=== PATIENT | female | born 1990 | race Caucasian/White ===

== ENCOUNTER 2022-06-26 12:54 | Inpatient (IN) | payer BC, SELFPAY ==
[2022-06-26] VITALS (15 sets, daily range): BP systolic 113–128; BP diastolic 67–76; PULSE 70–97; RESP 16–18; TEMP 36.6–37; O2SAT 99; BMI 31.1
[2022-06-26] MEDS: miSOPROStoL 25 MCG/0.25 TABLET PO ×5 (13:47→22:57)
--- NOTE | 2022-06-26 14:10 | P.OBHP_ITS ---
OB - H&P; HPI Antepartum History of Present Illness Time Seen by Provider: 14:10 Date Seen: 06/26/22 Chief complaint: Maternity Narrative: Rukhsana Vasquez is a 32 year old female who presents after SROM at 0530 this morning. Had gush of clear fluid when she woke and stood up this morning. Baby is moving well. History of Present Dating criteria: based on LMP care: good care Ultrasounds: normal mid trimester US Abnormal ultrasound findings: incomplete views on 20 week ultrasound, repeated at 24 weeks with normal anatomy Medical complications: none Labs Blood type: A (+) positive Rubella: immune GBS status: negative HBsAG: negative Review of Systems Status of ROS: Reports: 10 or more systems reviewed and unremarkable except as noted in History and below Meds Home Medications and Allergies Home Medication Comments: Pepcid, vitamin Allergies Allergy/AdvReac Type Severity Reaction Status Date / Time No Known Drug Allergies Allergy Verified 06/26/22 13:12 OB - H&P: Exam Physical Exam: Vital signs: Pulse BP Pulse Ox 88 128/76 99 06/26/22 13:49 06/26/22 13:49 06/26/22 13:08 Constitutional: Constitutional: no acute distress Routine HEENT Exam: Head: Present atraumatic, normal inspection and normocephalic Routine Neck Exam: Neck: Present full ROM Routine Respiratory Exam: Respiratory: Present CTA bilaterally Routine Cardiovascular Exam: Cardiovascular: RRR, S1 and S2 Detailed Labor and Delivery Exam: Patient Gravid: yes Routine Neurological Exam: Present alert and oriented X3 OB - A/P Antepartum Assessment and Plan (1) SROM (spontaneous rupture of membranes): Status: Acute (2) Term : Status: Acute Plan Patient is a who arrives after SROM at 0530. She went to clinic and had +amnisure. She has not been mart. We discussed options for proceeding with IOL. She is unfavorable, we elect to do oral cytotec to see if we can make her more favorable. First dose in. Questions answered. Will proceed with pitocin if needed. Anticipate . She is considering epidural for pain management. Continue to monitor FHT per protocol. Category 1 tracing at this t sunita. (Baseline 130, positive accels, moderate variability)
[2022-06-26 14:44] LABS: SARS PCR* Negative SARS-CoV-2 (Negative)
[2022-06-26] MEDS: hydrOXYzine pamoate 25 MG CAPSULE 100 MG PO (20:42)
[2022-06-26 22:55] LABS: Basophils Percent Auto 0.2 % (0.0-3.0); Eosinophils Percent Auto 1.1 % (0.0-7.0); Hematocrit 32.5 % (33.0-51.0); Immature Granulocytes Abs Auto 0.03 K/uL (0.00-0.30); Lymphocytes Percent Auto 19.8 % (20-44); Mean Corpuscular HGB Conc 34 gm/dL (32-36); Mean Corpuscular Hemoglobin 28 pg (26-34); Mean Corpuscular Volume 84 fL (80-100); Monocytes Percent Auto 9.5 % (0.0-11.0); Neutrophils Percent Auto 69.1 % (42.0-72.0); Platelet Count* 236 K/uL (140-440); RDW Coefficient of Variation % 12.8 % (11.5-15.5); Red Blood Count 3.89 m/uL (4.00-5.20); Slide Review Reflex No; White Blood Count* 11.34 K/uL (4.50-11.00)
[2022-06-27] VITALS (96 sets, daily range): BP systolic 89–144; BP diastolic 51–77; PULSE 70–103; RESP 16–18; TEMP 36.6–37.5; O2SAT 89–100
[2022-06-27] MEDS: miSOPROStoL 25 MCG/0.25 TABLET PO (01:17)
[2022-06-27] MEDS: ONDANSETRON 2 MG/ML inj 4 MG IV ×2 (04:06→11:42)
[2022-06-27] MEDS: LACTATED RINGERS 1000 ML 1,000 ML 125 ML IV (04:47)
[2022-06-27] MEDS: OXYTOCIN 30 unit/500 ML in NS 30 UNIT/500 ML BAG IVPB (05:15)
[2022-06-27] MEDS: ROPIVACAINE 0.2% 100 ml 100 ML 12 MG EPIDURAL (05:35)
--- NOTE | 2022-06-27 05:45 | P.ANBPRC_ITS ---
PFSH PFS Social History Smoking Status: Never smoker Meds Home Medications and Allergies Allergies Allergy/AdvReac Type Severity Reaction Status Date / Time No Known Drug Allergies Allergy Verified 06/26/22 13:12 Results Labs Labs: Laboratory Results - last 24 hr 06/26/22 06/26/22 06/26/22 13:26 22:45 22:45 WBC 11.34 H RBC 3.89 L Hgb 11.0 L Hct 32.5 L MCV 84 MCH 28 MCHC 34 RDW Coeff of Ora 12.8 Plt Count 236 Neut % (Auto) 69.1 Lymph % (Auto) 19.8 L [place] % (Auto) 9.5 Eos % (Auto) 1.1 Baso % (Auto) 0.2 Neut # (Auto) 7.80 H Lymph # (Auto) 2.20 [place] # (Auto) 1.10 H Eos # (Auto) 0.10 Baso # (Auto) 0.00 Abs Immat Gran (auto) 0.03 SARS-CoV-2 (PCR) Negative SARS-CoV-2 Blood Type A Positive Antibody Screen NEGATIVE Vital Signs Vital Signs: Last Vital Signs Temp 98.4 F 06/27/22 04:34 Pulse 77 06/27/22 05:44 Resp 18 06/27/22 02:12 BP 121/64 06/27/22 05:44 Pulse Ox 99 06/27/22 05:43 Weight: 92.986 kg Height: 172.72 cm Anesthesia Procedures Epidural Insertion Patient Location: OB Start Time: 04:45 Stop Time: 05:45 Start Date: 06/27/22 Stop Date: 06/27/22 Reason for Block: procedure for pain Patient Position: sitting Performed By: Kwaku Calzada Preanesthetic Checklist: IV checked, risks and benefits discussed, surgical consent, monitors and equipment checked, pre-op evaluation, timeout performed and anesthesia consent Prep: chlorhexidine gluconate Monitoring: blood pressure monitoring, continuous pulse oximetry and heart rate Approach: midline Vertebral Space: lumbar (1-5) Epidural Technique: DIVINE saline Needle Type: Tuohy needle Injection Technique: continuous catheter Needle gauge: 17 Needle Length (cm): 10 cm Needle Insertion Depth (cm): 7 Catheter Gauge: 19 Catheter Type: multi-orifice Catheter at skin depth (cm): 12 Test Dose Result: negative and lidocaine 1.5% with epinephrine 1 to 200,000
[2022-06-27] MEDS: LACTATED RINGERS 1000 ML 1,000 ML 999 ML IV (05:47)
[2022-06-27] MEDS: LIDOCAINE 1% MDV 20 ML INJECTION (13:08)
--- NOTE | 2022-06-27 13:44 | PM.OBPRCVD ---
Procedure Delivery date: 06/27/22 Procedure Done: Global Intrapartal Events: Labor Induction and ROM >18 Hours Induction method: per misoprostol protocol Delivery augmentation: pitocin Delivery monitor: external FHT Route of delivery: Laceration description: Perineal - 2nd Degree Delivery repair: Vicryl Estimated blood loss (mL): 60 Anesthesia type: Epidural Disposition: no change Narrative: The patient is a 32 y.o. female who was admitted for Reason for admission:SROM (0530 on 06/26). Had unfavorable cervix so started cytotec per oral protocol. Received 6 doses and then pitocin was started. She received epidural for anesthesia. She became complete at: 1130. The baby delivered Position:OA position over intact perineum. Cord was clamped x 2 after 1 minute of delayed cord clamping and cut by FOB who was in attendance. Placenta was delivered intact. The baby was delivered onto maternal abdomen and stayed with mother. No gross defects were observed. 2nd degree laceration repaired in the usual fashion. Sponge and sharp count is correct. Uterotonics after delivery of placenta: Pitocin Infant Infant Gender: Male presentation: vertex Placental Delivery Description: Spontaneous Cord Description: 3 Vessels cord description comment: had excessory membrane vs Band associated with cord OB Vag Delivery Procedures Additional Procedures ECV: No Cook Catheter Insertion: No NST: Yes D&C: No Laceration Repair: Yes Tubal Ligation : No Other: No
[2022-06-27] MEDS: IBUPROFEN 600 MG TABLET PO ×2 (14:41→20:42)
[2022-06-27] MEDS: ACETAMINOPHEN 500 MG TABLET 1000 MG PO (18:45)
[2022-06-28] VITALS (8 sets, daily range): BP systolic 111–129; BP diastolic 74–83; PULSE 72–84; RESP 16; TEMP 36.6–36.7; O2SAT 97–98
[2022-06-28] MEDS: IBUPROFEN 600 MG TABLET PO ×3 (02:34→14:59)
[2022-06-28 06:30] LABS: Hemoglobin* 9.1 gm/dL (12.0-16.0)
[2022-06-28] MEDS: DOCUSATE SODIUM 100 MG CAPSULE PO (08:40)
--- NOTE | 2022-06-28 14:47 | PM.OBDSVD1 ---
DS: Providers Provider Time Seen by Provider: 06:30 Date Seen: 06/28/22 Date of admission: 06/26/22 12:54 Primary care physician: Dalia Meadows MD Admitting Clinician: Dalia Meadows MD Attending Physician on discharge: Dalia Meadows MD Date of Discharge: 06/28/22 DS: Diagnosis Discharge Diagnosis (1) (normal spontaneous vaginal delivery): Status: Acute Exam Const: Vital Signs, click to edit/add: Vital Signs - 24 hr 06/27/22 15:00 06/27/22 16:26 06/27/22 15:00 Temperature 97.9 F 98.0 F Pulse Rate 103 H Pulse Rate [Blood Pressure Cuff] 103 H Pulse Rate [Pulse Oximeter] 99 Respiratory Rate 16 16 Blood Pressure 116/72 Blood Pressure [Le ft Arm] 116/72 Blood Pressure [Ri ght Arm] 109/71 Pulse Oximetry 98 Oxygen Delivery Me thod Room Air 06/27/22 18:45 06/27/22 20:25 06/28/22 02:10 Temperature 98.0 F 98 F 97.9 F Pulse Rate Pulse Rate [Blood Pressure Cuff] Pulse Rate [Pulse Oximeter] 85 72 Respiratory Rate 16 16 Blood Pressure Blood Pressure [Le ft Arm] Blood Pressure [Ri ght Arm] 113/73 121/80 Pulse Oximetry 98 97 Oxygen Delivery Me thod Room Air Room Air 06/28/22 05:15 06/28/22 05:25 06/28/22 08:40 Temperature 97.8 F 98.1 F Pulse Rate Pulse Rate [Blood Pressure Cuff] Pulse Rate [Pulse Oximeter] 72 Respiratory Rate 16 Blood Pressure Blood Pressure [Le ft Arm] Blood Pressure [Ri ght Arm] 129/83 121/77 Pulse Oximetry 97 Oxygen Delivery Me thod Room Air 06/28/22 08:43 06/28/22 12:45 06/28/22 09:40 Temperature 97.8 F 97.8 F Pulse Rate Pulse Rate [Blood Pressure Cuff] Pulse Rate [Pulse Oximeter] 84 Respiratory Rate 16 Blood Pressure Blood Pressure [Le ft Arm] 111/74 Blood Pressure [Ri ght Arm] Pulse Oximetry 97 Oxygen Delivery Me thod Room Air Room Air Documenting provider has reviewed patient's vital signs: yes Common normals: no apparent distress, average body habitus and oriented x3 General appearance: cooperative and comfortable Orientation/consciousness: Yes awake, Yes oriented to person, Yes oriented to place and Yes oriented to time HENMT: Common normals: normocephalic, head/scalp atraumatic and external nose normal Head and scalp: normocephalic and atraumatic Nose: external nose normal Chest: Chest: symmetrical chest wall rise Resp: Common normals: normal respiratory effort Effort & inspection: able to speak in complete sentences GI: Common normals: soft to palpation and non-tender Palpation: soft Other: fundas at 2 below umbilicus : OB/external & speculum: Yes deferred Extremity: Common normals: normal to inspection, full ROM, no clubbing, cyanosis or edema and no pedal edema Neuro: Common normals: oriented x3 Sensorium/orientation: awake, oriented to person, oriented to place and oriented to time Skin: Common normals: no rashes or lesions noted General skin exam: no rashes or lesions noted OB - DS: Summary Hospital Course Hospital Course: The patient is a 32 year old G 1 P 1 at 38 weeks gestation that was admitted to the Center on 06/26/22 for SROM. Had IOL with cytotec and pitocin. She had an uncomplicated vaginal delivery. She delivered a viable male infant. She is breast feeding. the patient has done well. Peripartum Data delivery method: Vaginal Laceration description: Perineal - 2nd Degree complications: none Infant Gender: Male Infant Discharge Plan: Home Status at Discharge Functional status at discharge: independent ambulation Overall status at discharge: patient is back to baseline Time Spent with Patient Time attestation: Total time spent providing and/or coordinating discharge services: Time spent: Less than 30 minutes Discharge Plan Discharge Disposition: Home, Self-Care Date of Admission: 06/26/22 12:54 Attending Provider on Discharge: Dalia Meadows Primary Care Provider: Dalia Meadows Condition: Stable Anticipated Discharge Date/Time: 06/28/22 14:37 Discharge Orders: Discharge Order (Routine); Ordered 06/28/22 Ordered By: Dalia Meadows Patient Education: Vaginal Delivery (DC) Activity Level: No Restrictions Activity Detail: pelvic rest x 6 weeks Discharge Diet: Regular Diet Detail: high iron diet. Follow Up Appointments: Dalia Meadows MD [Primary Care Provider] - Forms: MyHealth Info Instructions Discharge Comments: May take tylenol and ibuprofen for pain control as needed. May want to use miralax for stool softener as needed. Hemoglobin was 9.1, please consider iron supplementation daily in addition to vitamin.
== END 2022-06-28 16:05 | disposition home or self-care (01) | DRG 560 ==
PROVIDERS: Admitting Provider Family Medicine; PCP Family Medicine; Visit Provider Family Medicine
DX: O42.02 Full-term premature rupture of membranes, onset of labor within 24 hours of rupture (principal); O70.1 Second degree perineal laceration during delivery; Z3A.40 40 weeks gestation of pregnancy; Z37.0 Single live birth
CPT/HCPCS: 01967; 36415; 59200; 85018; 85025; 86850; 86900; 86901; 87635; A9270; J2405; J2795; J7120; S0020

== ENCOUNTER 2024-12-14 12:04 | Outpatient (CLI) | payer BC, SELFPAY ==
[2024-12-14 12:40] LABS: Appearance Urine Clear (Clear); Bilirubin Urine Negative (Negative); Blood Urine Negative (Negative); Color Urine Yellow (Yellow); Glucose Urine Negative (Negative); Ketones Urine Trace (Negative); Leukocyte Esterase Urine Negative (Negative); Nitrite Urine Negative (Negative); Protein Urine Negative (Negative); Specific Gravity Urine 1.015 (1.000-1.030); Urobilinogen Urine 0.2 (0.2-1.0); pH Urine 7.5 (5.0-8.5)
[2024-12-14 12:52] VITALS: BP 113/79; PULSE 85
[2024-12-14 13:16] LABS: Amnisure Rom* Negative
[2024-12-14 13:25] LABS: Clue Cells No Clue Cells Seen (None Seen); Trichomonas No Trichomonas Seen (None Seen); Yeast No Yeast Seen (None Seen)
--- NOTE | 2024-12-14 14:24 | PM.OBLDTN ---
OB - Triage/Final Diagnosis Visit Information Time Seen by Provider: 14:24 Date Seen: 12/14/24 Date of evaluation: 12/14/24 Narrative: The patient is a 34 year old 2 para 1 at 27 weeks gestation who presents with abdominal cramping. Patient was flying home last evening from [place] and on the plane had intense cramping in lower abdomen. She states this persisted for much for the flight but then resolved. Overnight she had recurrence of this that woke her from sleep. Today, she has been having menstrual like cramping. Had thin watery discharge yesterday, none today. Normal movement. Otherwise feels well. Evaluation Laboratory results: Laboratory Tests 12/14/24 12/14/24 Range/Units Unknown 12:27 Urine Color Yellow (Yellow) Urine Appearance Clear (Clear) Urine pH 7.5 (5.0-8.5) Ur Specific [place] 1.015 (1.000-1.030) Urine Protein Negative (Negative) Urine Glucose (UA) Negative (Negative) Urine Ketones Trace A (Negative) Urine Blood Negative (Negative) Urine Nitrite Negative (Negative) Urine Bilirubin Negative (Negative) Urine Urobilinogen 0.2 (0.2-1.0) Ur Leukocyte Esterase Negative (Negative) Membrane Rupture Negative Vaginal Trichomonas No Trichomonas Seen (None Seen) Vaginal Yeast No Yeast Seen (None Seen) Vaginal Clue Cells No Clue Cells Seen (None Seen) Vital signs: Vital Signs - 24 hr 12/14/24 12:52 Pulse Rate 85 Blood Pressure 113/79 Fetus (Single) Heart Rate Baseline: 140 [place] Variability: Moderate (6-25) Monitor Accelerations: Present Monitor Decelerations: None Final Diagnosis (1) uterine contractions: Status: Acute Problem details: Patient presents with cramping, irritability of uterus with occasional contraction. UA unremarkable, wet prep normal. Amnisure negative. Cervical length is 4 cm. Given this, unlikely to progress to labor. Recommend ongoing hydration, monitoring of symptoms, returning with any changes. She will call PRN, otherwise will follow up with me next week in clinic. (2) Abdominal cramping affecting : Status: Acute Problem details: ?GI source. Work up above reassuring. Will continue to monitor, discussed supportive cares. Total Time Spent Total Time Spent: 45
--- NOTE | 2024-12-14 16:48 | PC.OBNST ---
NST Note NST Note Start: 12/14/24 12:34 Freq: ONCE Status: Active Protocol: Document 12/14/24 16:47 ABP (Rec: 12/14/24 16:47 ABP [id number]) NST Note 2 Para (# of births) 1 EDC 03/12/25 Gestational Age In Weeks & Days 27 Weeks & 3 Days Patient Presented with Complaint(s) of Contractions/cramping,Leaking fluid Reactive Yes Appropriate for Gestational Age Yes RN Estephanie Liriano, RN Date 12/14/24 Reactive Yes Appropriate for Gestational Age Yes RAIN Martinez RNC Date 12/14/24 OB NST charge Yes Complete NST Note via Write Note Yes The provider's electronic signature indicates the NST is reactive/appropriate for gestational age. *Note to provider: If an addendum is required, open the patient's chart and click on the note under the Nurse/Allied Health tab.
== END 2024-12-14 14:25 | disposition home or self-care (01) ==
LOC: OB OUT 12:05 → OB 12:05
PROVIDERS: PCP Family Medicine; Visit Provider Family Medicine
DX: O47.02 False labor before 37 completed weeks of gestation, second trimester (principal); Z3A.27 27 weeks gestation of pregnancy
CPT/HCPCS: 59025; 76815; 76817; 81003; 84112; 87086; 87186; 87210; 99199; G0463

== ENCOUNTER 2025-02-01 08:34 | Outpatient (CLI) | payer BC, SELFPAY ==
[2025-02-01 08:51] VITALS: PULSE 105; O2SAT 98
[2025-02-01 08:53] VITALS: BP 121/59; PULSE 104; RESP 16; TEMP 36.9
[2025-02-01 09:17] LABS: Appearance Urine Cloudy (Clear); Bilirubin Urine Negative (Negative); Blood Urine Negative (Negative); Color Urine Yellow (Yellow); Glucose Urine Negative (Negative); Ketones Urine Negative (Negative); Leukocyte Esterase Urine Negative (Negative); Nitrite Urine Negative (Negative); Protein Urine 1+ (Negative); Urobilinogen Urine 0.2 (0.2-1.0); pH Urine 7.5 (5.0-8.5)
[2025-02-01 09:21] LABS: Clue Cells No Clue Cells Seen (None Seen); Trichomonas No Trichomonas Seen (None Seen); Yeast No Yeast Seen (None Seen)
[2025-02-01 09:26] LABS: Amnisure Rom* Negative
[2025-02-01 09:29] LABS: Bacteria Urine Many; RBC Urine 0-2 (0-2); Squamous Epithelial Cell Urine Moderate (None-Few)
--- NOTE | 2025-02-01 09:57 | PC.OBNST ---
NST Note NST Note Start: 02/01/25 08:45 Freq: ONCE Status: Active Protocol: Document 02/01/25 09:56 ABP (Rec: 02/01/25 09:57 ABP [id number]) NST Note 2 Para (# of births) 1 EDC 03/12/25 Gestational Age In Weeks & Days 34 Weeks & 3 Days Patient Presented with Complaint(s) of Leaking fluid Reactive Yes Appropriate for Gestational Age Yes RAIN Liriano RNC Date 02/01/25 Reactive Yes Appropriate for Gestational Age Yes RAIN Hou RN Date 02/01/25 OB NST charge Yes Complete NST Note via Write Note Yes The provider's electronic signature indicates the NST is reactive/appropriate for gestational age. *Note to provider: If an addendum is required, open the patient's chart and click on the note under the Nurse/Allied Health tab.
[2025-02-02 08:49] LABS: Strep B DNA Probe Negative (Negative)
[2025-02-02 10:16] LABS: Strep B Susceptibility Needed? No
--- NOTE | 2025-02-04 17:57 | PC.OBNST ---
NST Note NST Note Start: 02/01/25 08:45 Freq: ONCE Status: Discharge Protocol: Document 02/01/25 09:56 ABP (Rec: 02/01/25 09:57 ABP [id number]) NST Note 2 Para (# of births) 1 EDC 03/12/25 Gestational Age In Weeks & Days 34 Weeks & 3 Days Patient Presented with Complaint(s) of Leaking fluid Reactive Yes Appropriate for Gestational Age Yes RAIN Liriano RNC Date 02/01/25 Reactive Yes Appropriate for Gestational Age Yes RAIN Hou RN Date 02/01/25 OB NST charge Yes Complete NST Note via Write Note Yes The provider's electronic signature indicates the NST is reactive/appropriate for gestational age. *Note to provider: If an addendum is required, open the patient's chart and click on the note under the Nurse/Allied Health tab.
--- NOTE | 2025-03-03 18:33 | W.PM.NSTNOTE ---
NST Note NST Note NST Note: NST Note NST Note Start: 02/01/25 08:45 Freq: ONCE Status: Discharge Protocol: Document 02/01/25 09:56 ABP (Rec: 02/01/25 09:57 ABP [id number]) NST Note 2 Para (# of births) 1 EDC 03/12/25 Gestational Age In 34 Weeks & 3 Days Weeks & Days Patient Presented Leaking fluid with Complaint(s) of Reactive Yes Appropriate for Yes Gestational Age RAIN Liriano RNC Date 02/01/25 Reactive Yes Appropriate for Yes Gestational Age RAIN Hou, RAIN Date 02/01/25 OB NST charge Yes Complete NST Note Yes via Write Note Addendum: FHT: moderate variability, baseline 145 bpm, accels present, no decels.
== END 2025-02-01 09:45 | disposition home or self-care (01) ==
LOC: OB OUT 08:35 → OB 08:36
PROVIDERS: PCP Family Medicine; Visit Provider Student in an Organized Health Care Education/Training Program
DX: O47.03 False labor before 37 completed weeks of gestation, third trimester (principal); Z3A.34 34 weeks gestation of pregnancy
CPT/HCPCS: 59025; 81001; 84112; 87081; 87086; 87210; 87653; G0463

== ENCOUNTER 2025-03-10 08:07 | Inpatient (IN) | payer BC, SELFPAY ==
[2025-03-10] VITALS (29 sets, daily range): BP systolic 102–139; BP diastolic 56–80; PULSE 70–98; RESP 16; TEMP 36.5–36.7; O2SAT 97–100; BMI 31.4
[2025-03-10 09:02] LABS: Hematocrit 32.7 % (33.0-51.0); Hemoglobin* 10.6 gm/dL (12.0-16.0); Lymphocytes Percent Auto 14.5 % (20-44); Mean Corpuscular HGB Conc 32 gm/dL (32-36); Mean Corpuscular Hemoglobin 27 pg (26-34); Mean Corpuscular Volume 83 fL (80-100); Monocytes Percent Auto 9.3 % (0.0-11.0); Neutrophils Percent Auto 73.2 % (42.0-72.0); Platelet Count* 199 K/uL (140-440); Red Blood Count 3.92 m/uL (4.00-5.20); White Blood Count* 9.33 K/uL (4.50-11.00)
[2025-03-10 09:03] LABS: Basophils Absolute Auto 0.02 K/uL (0.00-0.30); Basophils Percent Auto 0.2 % (0.0-3.0); Eosinophils Absolute Auto 0.23 K/uL (0.00-0.50); Eosinophils Percent Auto 2.5 % (0.0-7.0); Immature Granulocytes Abs Auto 0.03 K/uL (0.00-0.30); Immature Granulocytes Pct Auto 0.3 %; Slide Review Reflex No
[2025-03-10] MEDS: LACTATED RINGERS 1000 ML 1,000 ML 125 ML IV (09:11)
[2025-03-10] MEDS: OXYTOCIN 30 unit/500 ML in NS 30 UNIT/500 ML BAG IVPB (09:11)
--- NOTE | 2025-03-10 12:21 | PM.OBHPLI ---
OB - H&P: HPI Labor/Induction History of Present Illness Time Seen by Provider: 12:21 Date Seen: 03/10/25 Chief Complaint: The patient is a 34 year old 2 para 1 at 39.5 weeks gestation by LMP and consistent with 8 week ultrasound, who presents for elective IOL. Chief complaint: Elective IOL : 2 Para: 1 Narrative: Rukhsana Vasquez is a 34 year old female at 39.5 week gestation who presents for elective IOL for prolonged prodromal labor. Patient has been mart painfully off and on since 36 weeks. Patient's has been complicated by PUPPS rash and anemia (s/p feraheme x 2). History of Present Dating criteria: based on LMP (consistent with 8 week ultrasound) care: good care Ultrasounds: normal 1st trimester US and normal mid trimester US (level 2 ultrasound done for history of amniotic band on first baby) Medical complications: none Labs Blood type: A (+) positive Rubella: immune RPR/VDLR: nonreactive GBS status: negative HBsAG: negative Review of Systems Status of ROS: Reports: 10 or more systems reviewed and unremarkable except as noted in History and below Meds Home Medications and Allergies Home Medications ?Medication ?Instructions ?Recorded ?Confirmed ?Type vit no.95-ferrous 1 tab PO DAILY 12/14/24 03/10/25 History fumarate 28 mg-folic acid 800 mcg tablet () hydroxyzine HCl 25 mg tablet 25 mg PO HS itching 03/10/25 03/10/25 History triamcinolone acetonide 0.1 % 1 applic topical BID pups rash 03/10/25 03/10/25 History lotion Allergies Allergy/AdvReac Type Severity Reaction Status Date / Time No Known Drug Allergies Allergy Verified 03/10/25 08:25 OB - H&P: Exam Physical Exam: Vital signs: Temp Pulse BP Pulse Ox 98.1 F 83 132/73 99 03/10/25 09:30 03/10/25 12:19 03/10/25 12:19 03/10/25 09:31 Constitutional: Constitutional: no acute distress Routine HEENT Exam: Head: Present atraumatic and normal inspection Routine Neck Exam: Neck: Present full ROM Routine Respiratory Exam: Respiratory: Present CTA bilaterally Routine Cardiovascular Exam: Cardiovascular: RRR, S1, S2 and murmur (1/6 systolic murmur) Detailed Labor and Delivery Exam: Patient Gravid: yes Dilation (cm): 3 Effacement (%): 80 Cervix position: mid Consistency: medium Contraction frequency (min): 4 Tachysystole: No Contraction intensity: Mild Fetus (Single): Station: -2 Amniotic Membrane Status: AROM (arom now of scant amount of clear fluid) Amniotic Membrane Fluid Description: Clear Heart Rate Baseline: 135 Monitor Accelerations: Present Monitor Decelerations: None [employer] Variability: Moderate (6-25) Routine Extremities Exam: Extremities: Absent calf tenderness Routine Skin Exam: Present intact Routine Neurological Exam: Present alert and oriented X3 Routine Psychiatric Exam: Present normal affect OB - Results Labs Labs: Short CBC 03/10/25 Range/Units 08:51 WBC 9.33 (4.50-11.00) K/uL Hgb 10.6 L (12.0-16.0) gm/dL Hct 32.7 L (33.0-51.0) % Plt Count 199 (140-440) K/uL OB - Problem Based A/P Additional Plan (1) Gestational proteinuria: Problem details: had elevated prot/cr ratio weeks ago in clinic, no elevated blood pressures, no symptoms of preeclampsia. Status: Acute (2) Term : Status: Acute (3) Anemia affecting : Problem details: anemia in , s/p 2 feraheme infusions in clinic. Admission hemoglobin 10.6 Status: Acute Plan - Pitocin started this morning - AROM now, scant fluid, feeling more painful afterward. Delivery/Labor/Induction Plan Plan: induction Induction method: per pitocin protocol
[2025-03-10] MEDS: CALCIUM CARBONATE 500 MG CHEW PO (12:23)
[2025-03-10] MEDS: ONDANSETRON 2 MG/ML inj 4 MG IV (13:57)
[2025-03-10] MEDS: ROPIVACAINE 0.2% 100 ml 100 ML 12 MG EPIDURAL (14:07)
[2025-03-10] MEDS: LIDOCAINE 2% (PF) 5 ML VIAL EPIDURAL (14:08)
[2025-03-10] MEDS: fentaNYL 250 MCG/5 ML inj 100 MCG EPIDURAL (14:25)
[2025-03-10] MEDS: LACTATED RINGERS 1000 ML 1,000 ML 925 ML IV (14:28)
--- NOTE | 2025-03-10 14:38 | PM.ANBPRC ---
[facility] Medical History (Updated 03/10/25 @ 12:33 by Dalia Meadows MD) Term ?Z34.90 - Encounter for supervision of normal , unspecified, unspecified trimester (ICD-10) Social History What is your current living situation?: I presently have a place to live Problems where you live: no known problems In the past 12 months, utilities in danger of being shut off: no In past 12 months, lack of transportation kept you from medical appts, meetings, work, or getting things needed for daily living: no In the past 12 mos, have been you worried that your food would run out before you had money to buy more?: never true In the past 12 mos, the food you bought just didn't last and you didn't have money to buy more?: never true Smoking Status: Never smoker How often does anyone, including family, friends and others, physically hurt you: never How often does anyone, including family, friends and others, insult or talk down to you: never How often does anyone, including family, friends and others, threaten you with harm: never How often does anyone, including family, friends and others, scream or curse at you: never Meds Home Medications and Allergies Home Medications ?Medication ?Instructions ?Recorded ?Confirmed ?Type vit no.95-ferrous 1 tab PO DAILY 12/14/24 03/10/25 History fumarate 28 mg-folic acid 800 mcg tablet () hydroxyzine HCl 25 mg tablet 25 mg PO HS itching 03/10/25 03/10/25 History triamcinolone acetonide 0.1 % 1 applic topical BID pups rash 03/10/25 03/10/25 History lotion Allergies Allergy/AdvReac Type Severity Reaction Status Date / Time No Known Drug Allergies Allergy Verified 03/10/25 08:25 Results Labs Labs: Laboratory Results - last 24 hr 03/10/25 08:51 WBC 9.33 RBC 3.92 L Hgb 10.6 L Hct 32.7 L MCV 83 MCH 27 MCHC 32 RDW Coeff of Ora 17.0 H Plt Count 199 Neut % (Auto) 73.2 H Lymph % (Auto) 14.5 L [place] % (Auto) 9.3 Eos % (Auto) 2.5 Baso % (Auto) 0.2 Neut # (Auto) 6.80 Lymph # (Auto) 1.40 [place] # (Auto) 0.90 Eos # (Auto) 0.23 Baso # (Auto) 0.02 Abs Immat Gran (auto) 0.03 Imm/Tot Granulo (auto) 0.3 Blood Type A Positive Antibody Screen NEGATIVE Vital Signs Vital Signs: Last Vital Signs Temp 97.7 F 03/10/25 12:19 Pulse 98 03/10/25 14:36 BP 127/63 03/10/25 14:36 Pulse Ox 100 03/10/25 14:21 Weight: 93.894 kg Height: 172.72 cm Anesthesia Procedures Epidural Insertion Patient Location: OB Start Time: 14:00 Stop Time: 15:00 Start Date: 03/10/25 Stop Date: 03/10/25 Reason for Block: primary anesthetic Patient Position: sitting Performed By: Gonzalo Joseph Preanesthetic Checklist: IV checked, risks and benefits discussed, surgical consent, monitors and equipment checked, pre-op evaluation, timeout performed and anesthesia consent Prep: chlorhexidine gluconate Monitoring: blood pressure monitoring, cardiac cath rn, continuous pulse oximetry and heart rate Approach: midline Vertebral Space: lumbar (1-5) Needle Type: Tuohy needle Injection Technique: continuous catheter Needle gauge: 17 Needle Length (cm): 10 cm Needle Insertion Depth (cm): 6 Catheter Gauge: 19 Catheter Type: multi-orifice Catheter at skin depth (cm): 12 Test Dose Result: negative and lidocaine 1.5% with epinephrine 1 to 200,000 Events: other
--- NOTE | 2025-03-10 15:46 | PM.OBPNL ---
Subjective Time Seen by Provider: 15:46 Date Seen: 03/10/25 Narrative: Patient is comfortable with epidural. Objective Exam: Resting comfortably in bed. Vital Signs: Last Vital Signs Temp 98 F 03/10/25 14:54 Pulse 78 03/10/25 15:39 BP 112/56 L 03/10/25 15:39 Pulse Ox 100 03/10/25 14:21 Pelvic Exam Dilation (cm): 5 Effacement (%): 90 Station: -1 Contractions Monitor mode: External Contraction Frequency: 2-3 min Contraction pattern: Regular Contraction intensity: Strong/Firm Pitocin Rate (mU/min): 4 Assessment Assessment: induction ongoing Station: -1 Amniotic Membrane Status: AROM (clear fluid) Status: Category l Heart Rate Baseline: 135 [place] Variability: Moderate (6-25) Monitor Accelerations: Present Monitor Decelerations: None Plan Plan: - increase pitocin - anticipate - continue epidural for analgesia.
--- NOTE | 2025-03-10 17:22 | W.PM.OBVAGDE ---
OB Procedure Vag Delivery Mother Details Mother Details: The patient is a 34 year-old, 2, Para 1, admitted on 03/10/25 at 39.5 Days gestation. : 2 Para: 1 Weeks Gestation: 39.5 Admission Date: 03/10/25 Additional Details Amniotic Membrane Status: AROM (arom now of scant amount of clear fluid) Amniotic Membrane Rupture Date: 03/10/25 Amniotic Membrane Rupture Time: 12:11 Amniotic Membrane Fluid Description: Clear Analgesia/Anesthesia Type: Epidural Waterbirth: No Pitcoin: Yes Intrapartal Events: Labor Induction and Precipitous Labor <3 Hrs Induction Method: per pitocin protocol and AROM Labor Onset: 15:45 Complete: 16:29 Pushin:30 Heart: heart tones during second stage showed deep late decels to 80s, but recovered between contractions with position changes. Was able to push very effectively. Delivery Details Delivery Date: 03/10/25 Delivery Time: 16:35 Route of delivery: Infant Gender: Female Infant Viability: Alive; Heart Rate Present Position at Delivery: OA Delivery Details: Patient was admitted for IOL (elective) at 39.5 weeks gestation. She was started on pitocin per protocol, and AROM was performed at 1211. Patient received epidural for analgesia with good relief. Patient progressed very well. Was 5 cm at 1545 and showed early decels and was found to be complete at 1629. Due to recurrent decels, pushing was started immediately at 1630. Patient pushed very effectively over 3 contractions spontaneously delivering a viable female over intact perineum. Nuchal cord was reduced x 1. was placed on maternal abdomen.? Cord was clamped and cut after a 30-60 second delay by FOB who was in attendence. Nose and mouth were bulb suctioned.? Infant weight pending 1 Minute Interval Total Score: 8 5 Minute Interval Total Score: 8 Additional Details Shoulder Dystocia: No Placenta Delivery Time: 16:45 Placental Delivery Description: Spontaneous Delivery repair: Vicryl Procedure Done: Global Blood Loss: 75 Laceration: Perineal - 2nd Degree Blood Loss Measurement Type: QBL Bakri Used: No Sponge/Need Count Correct: Yes Cord Vessel Description: 3 Vessels, Nuchal Cord and Reduced Event Summary Status: Mother and were stable after delivery. Disposition: no change
[2025-03-10] MEDS: IBUPROFEN 600 MG TABLET PO (19:04)
[2025-03-10] MEDS: ACETAMINOPHEN 500 MG TABLET 1000 MG PO (20:49)
[2025-03-11] MEDS: CALCIUM CARBONATE 500 MG CHEW PO (00:02)
[2025-03-11 00:06] VITALS: BP 109/77; PULSE 76; RESP 18; O2SAT 96
[2025-03-11] MEDS: BENZOCAINE/MENTHOL SPRAY 85 GM AEROSOL 1 APPLIC TOPICAL (00:11)
[2025-03-11 04:47] VITALS: BP 104/66; PULSE 72; RESP 16; O2SAT 97
[2025-03-11] MEDS: IBUPROFEN 600 MG TABLET PO ×3 (04:50→16:58)
[2025-03-11 06:25] LABS: Hemoglobin* 10.3 gm/dL (12.0-16.0)
--- NOTE | 2025-03-11 07:27 | PM.OBPNVD1 ---
OB - PN:Subj Subjective Date Seen: 03/11/25 Narrative: Patient seen today on PP day 1. Doing well. No concerns today. Pain under control. Lochia decreasing. Ambulating. Tolerating diet. Normal urination. going well. Baby doing well. OB - PN: Obj Exam Physical Exam: Vital signs: Temp Pulse Resp BP Pulse Ox O2 Del Method 97.8 F 72 16 104/66 97 Room Air 03/10/25 20:37 03/11/25 04:47 03/11/25 04:47 03/11/25 04:47 03/11/25 04:47 03/11/25 04:47 Narrative: Gen: NAD CV: RRR, normal S1,S2, no murmurs Resp: normal rate and effort, clear to auscultation Mood: Appropriate OB - PN: Obj Data Labs Labs: Laboratory Results - last 24 hr 03/10/25 03/11/25 08:51 06:20 WBC 9.33 RBC 3.92 L Hgb 10.6 L 10.3 L Hct 32.7 L MCV 83 MCH 27 MCHC 32 RDW Coeff of Ora 17.0 H Plt Count 199 Neut % (Auto) 73.2 H Lymph % (Auto) 14.5 L [place] % (Auto) 9.3 Eos % (Auto) 2.5 Baso % (Auto) 0.2 Neut # (Auto) 6.80 Lymph # (Auto) 1.40 [place] # (Auto) 0.90 Eos # (Auto) 0.23 Baso # (Auto) 0.02 Abs Immat Gran (auto) 0.03 Imm/Tot Granulo (auto) 0.3 Blood Type A Positive Antibody Screen NEGATIVE OB - PN: A/P Delivery Assessment and Plan (1) Gestational proteinuria: Problem details: had elevated prot/cr ratio weeks ago in clinic, no elevated blood pressures, no symptoms of preeclampsia. Status: Acute (2) Anemia affecting : Problem details: anemia in , s/p 2 feraheme infusions in clinic. Admission hemoglobin 10.6 Status: Acute (3) (normal spontaneous vaginal delivery): Problem details: Elective IOL at 39w5d. Apgars 8,8. Minimal blood loss. Hb stable 10.3 . Status: Acute Plan Comments: PPD#1 s/p uncomplicated , doing well. Plan: -- Continue current cares. -- Encourage ambulation. -- Take Vitamins while .
[2025-03-11 08:18] VITALS: PULSE 79; RESP 17; TEMP 36.6; O2SAT 98
[2025-03-11] MEDS: DOCUSATE SODIUM 100 MG CAPSULE PO (08:24)
[2025-03-11] MEDS: ACETAMINOPHEN 500 MG TABLET 1000 MG PO ×3 (08:24→20:05)
--- NOTE | 2025-03-11 09:15 | PM.ANPOST ---
Post Anesthesia Note Post Anesthesia Note Patient seen: Inpatient Respiratory Status: adequate Cardiovascular Status: adequate Mental Status: baseline Pain: adequate Temp: baseline Anesthetic awareness: N/A Complications: none Follow care: none
[2025-03-11 12:02] VITALS: BP 115/77; PULSE 76; RESP 16; TEMP 36.6; O2SAT 99
[2025-03-11 16:10] VITALS: BP 111/72; PULSE 69; RESP 19; TEMP 36.4; O2SAT 98
[2025-03-11 23:08] LABS: Rapid Plasma Reagin (RPR) Non Reactive (Non Reactive)
[2025-03-12 00:15] VITALS: BP 107/69; PULSE 72; RESP 16; TEMP 36.4; O2SAT 98
[2025-03-12] MEDS: IBUPROFEN 600 MG TABLET PO ×2 (00:16→07:33)
[2025-03-12] MEDS: DOCUSATE SODIUM 100 MG CAPSULE PO (07:34)
[2025-03-12 07:44] VITALS: BP 110/72; PULSE 76; RESP 16; O2SAT 98
--- NOTE | 2025-03-12 07:45 | P.DS_ITS ---
DS: Providers Provider Time Seen by Provider: 07:50 Date Seen: 03/12/25 Date of admission: 03/10/25 08:07 Primary care physician: Dalia Meadows MD Admitting Clinician: Dalia Meadows MD Attending Physician on discharge: Dalia Meadows MD Date of Discharge: 03/12/25 DS: Diagnosis Discharge Diagnosis (1) (normal spontaneous vaginal delivery): Status: Acute Problem details: Elective IOL at 39w5d. Apgars 8,8. Minimal blood loss. Hb stable 10.3 . (2) Anemia affecting : Status: Acute Problem details: anemia in , s/p 2 feraheme infusions in clinic. Admission hemoglobin 10.6 Exam Const: Vital Signs, click to edit/add: Vital Signs - 24 hr 03/11/25 08:18 03/11/25 12:02 03/11/25 16:10 Temperature 97.8 F 97.8 F 97.6 F Pulse Rate [Pulse Oximeter] 79 76 69 Respiratory Rate 17 16 19 Blood Pressure [Le ft Arm] 115/77 111/72 Pulse Oximetry 98 99 98 Oxygen Delivery Me thod Room Air Room Air Room Air 03/12/25 00:15 Temperature 97.6 F Pulse Rate [Pulse Oximeter] 72 Respiratory Rate 16 Blood Pressure [Le ft Arm] 107/69 Pulse Oximetry 98 Oxygen Delivery Me thod Room Air Documenting provider has reviewed patient's vital signs: yes Common normals: no apparent distress HENMT: Common normals: normocephalic Head and scalp: normocephalic Neck & C-Spine: Common normals: full ROM Chest: Common normals: inspection of chest normal Resp: Common normals: normal respiratory effort, no retractions and clear to auscultation bilaterally Auscultation: clear to auscultation bilaterally Cardio: Common normals: regular rate and regular rhythm Rate: regular rate Rhythm: regular rhythm Extremity: Common normals: normal to inspection OB - DS: Summary Hospital Course Hospital Course: The patient is a 34 year old G 2 P 2 at 39.6 weeks gestation that was admitted to the [facility] on 03/10/25 for elective IOL. She had an uncomplicated vaginal delivery. She delivered a viable female . She is breast feeding. the patient has done well. Patient feels milk is comign in. Feels well. Bleeding and pain appropriate. Peripartum Data Infant delivery method: Vaginal Laceration description: Perineal - 2nd Degree complications: none [place] Gender: Female Discharge Plan: Home Status at Discharge Functional status at discharge: independent ambulation Overall status at discharge: patient is back to baseline Time Spent with Patient Time attestation: Total time spent providing and/or coordinating discharge services: Time spent: Less than 30 minutes Discharge Plan Discharge Disposition: Home, Self-Care Date of Admission: 03/10/25 08:07 Attending Provider on Discharge: Dalia Meadows Primary Care Provider: Dalia Meadows Condition: Improved Anticipated Discharge Date/Time: 03/12/25 09:00 Discharge Medications: Continued PNV [id number] fumarate-FA [] 28 mg iron- 800 mcg tablet 1 tab PO DAILY hydroxyzine HCl 25 mg tablet 25 mg PO HS triamcinolone acetonide 0.1 % lotion 1 applic topical BID Discharge Orders: Discharge Order (Routine); Ordered 03/12/25 Ordered By: Dalia Meadows Patient Education: OB Vaginal/Breast Feeding Activity Level: Activity as Tolerated Activity Detail: Pelvic rest x 6 weeks Discharge Diet: Regular Follow Up Appointments: Dalia Meadows MD [Primary Care Provider, Family Practice] Forms: [facility] Info Instructions Discharge Comments: Follow up in 6 weeks for visit.
== END 2025-03-12 11:00 | disposition home or self-care (01) | DRG 560 ==
PROVIDERS: Admitting Provider Family Medicine; PCP Family Medicine; Visit Provider Family Medicine
DX: O62.0 Primary inadequate contractions (principal); O99.02 Anemia complicating childbirth; D64.9 Anemia, unspecified; O12.14 Gestational proteinuria, complicating childbirth; O70.1 Second degree perineal laceration during delivery; Z3A.39 39 weeks gestation of pregnancy; Z37.0 Single live birth
CPT/HCPCS: 01967; 36415; 85018; 85025; 86592; 86850; 86900; 86901; A9270; J2405; J2795; J3010; J7120

== ENCOUNTER 2025-06-09 09:00 | Outpatient (RCR) | payer BC, SELFPAY | END 2025-08-28 11:09 | disposition home or self-care (01) | PROVIDERS: PCP Family Medicine; Visit Provider Family Medicine | DX: Z39.2 Encounter for routine postpartum follow-up (principal); M54.6 Pain in thoracic spine; R27.8 Other lack of coordination; Z51.89 Encounter for other specified aftercare | CPT/HCPCS: 97110; 97112; 97161; 97535 ==